=== PATIENT | female | born 1935 | race Caucasian/White ===

== ENCOUNTER → 2020-06-09 | Outpatient (CLI) | payer MEDICARE, BC ==
[~2020-06-09] MED LIST: CLOP75TA35 PO; DILT120C19 PO; EST1T PO; LEVO50TA PO; LOSA50TA3 PO; NITR0.4T SL
== END | disposition home or self-care (01) ==
LOC: VAS 13:46
PROVIDERS: ATTEND Radiology Diagnostic Radiology
DX: I74.5 Embolism and thrombosis of iliac artery (principal); I70.203 Unspecified atherosclerosis of native arteries of extremities, bilateral legs
CPT/HCPCS: 93922; 93925

== ENCOUNTER 2020-06-13 06:38 | Inpatient (IN) | payer MEDICARE, BC ==
[~2020-06-13] VITALS: Ht 144.8 cm; Wt 35.9 kg
[2020-06-13] VITALS (17 sets, daily range): BP systolic 133–184; BP diastolic 43–87
[2020-06-13] MEDS ORDERED: IBUP-24 PO (07:29)
[2020-06-13] MEDS ORDERED: CIME200T95 PO (07:29)
[2020-06-13] MEDS ORDERED: ACET-1025 PO (07:29)
[2020-06-13] MEDS ORDERED: ASCO-139 PO (07:29)
[2020-06-13] MEDS ORDERED: CHOL100046 PO (07:29)
[2020-06-13] MEDS ORDERED: OLME20TA23 PO (07:29)
[2020-06-13] MEDS ORDERED: normal saline 1000ml 1,000 ML IV PRN (07:40)
[2020-06-13 07:43] LABS: ALBUMIN 3.2 G/DL (3.4-5.0); ANION GAP 15 (8-16); BLOOD UREA NITROGEN 57 MG/DL (7-18); BUN/CREATININE RATIO 28.6 (6.6-38.0); CALCIUM 9.3 MG/DL (8.5-10.1); CHLORIDE 102 MMOL/L (99-107); CREATININE 1.99 MG/DL (0.40-0.90); GLUCOSE 104 MG/DL (70-104); SODIUM 135 MMOL/L (135-145); TOTAL CARBON DIOXIDE 18.3 MMOL/L (24-32); eGFR 24 ML/MIN
[2020-06-13 07:47] LABS: POTASSIUM 4.2 MMOL/L (3.5-5.1)
[2020-06-13] MEDS ORDERED: LIDOcaine 1%/PF 5ML 10 MG/ML VIAL ONE (07:50)
[2020-06-13] MEDS ORDERED: iohexol 300mg/ml 100ml inj. ONE (07:50)
[2020-06-13] MEDS ORDERED: heparin 1,000 UNITS/NS 500ml 500 ML ONE (07:50)
[2020-06-13 08:41] LABS: BASOPHILS # (AUTO) 0.1 X10'3 (0-0.2); BASOPHILS % (AUTO) 0.5 % (0-1); EOSINOPHILS % (AUTO) 0.1 % (0-6); HEMATOCRIT 30.9 % (35.0-45.0); HEMOGLOBIN 10.6 g/dl (12.0-16.0); LYMPHOCYTES # (AUTO) 1.4 X10'3 (1.1-4.8); LYMPHOCYTES % (AUTO) 6.9 % (21-51); MEAN CORPUSCULAR HEMOGLOBIN 33.9 PG (27.0-31.0); MEAN CORPUSCULAR HGB CONC 34.4 g/dL (33.0-36.5); MEAN CORPUSCULAR VOLUME 98.5 FL (78-98); MEAN PLATELET VOLUME 8.1 FL (7.4-10.4); MONOCYTES # (AUTO) 1.1 X10'3 (0-0.9); MONOCYTES % (AUTO) 5.7 % (2-12); NEUTROPHILS # (AUTO) 17.5 X10'3 (1.8-7.7); NEUTROPHILS % (AUTO) 86.8 % (42-75); PLATELET COUNT 375 X10'3 (140-440); RED BLOOD COUNT 3.14 X10'6 (4.20-5.60); RED CELL DISTRIBUTION WIDTH 12.9 % (11.5-14.5); WHITE BLOOD COUNT 20.1 X10'3 (4.5-11.0)
[2020-06-13] MEDS ORDERED: morphine 2 MG/ML inj. syringe IV ONE (08:55)
[2020-06-13] MEDS ORDERED: normal saline 1000ml 1,000 ML IV SCH ×2 (08:58→09:28)
[2020-06-13] MEDS ORDERED: HYDROmorphone/NS 1 mg/ml CADD 50 ML IV SCH (09:00)
[2020-06-13] MEDS ORDERED: normal saline 1000ml 1,000 ML IV ONE (09:00)
[2020-06-13 09:06] LABS: PARTIAL THROMBOPLASTIN TIME 28 SECONDS (22-32)
[2020-06-13] MEDS ORDERED: HYDROmorphone inj. 0.5 MG/0.5 ML DISP.SYRIN IM ONE (09:45)
[2020-06-13] MEDS ORDERED: HYDROmorphone inj. 0.5 MG/0.5 ML DISP.SYRIN IV ONE ×2 (10:05→10:35)
--- NOTE | 2020-06-13 11:00 | NUR ---
Patient in room [facility]. I have received report from Flora OSORIO and had the opportunity to ask questions and assume patient care. patient orientated in room, appears stable
--- NOTE | 2020-06-13 11:00 | NUR ---
Called report to JO Krishnamurthy on surgical-pt transferred to [address] via [facility]/C- Addendum: 06/13/20 at 1200 by Flora Holliday RN Amended: Links added.
[2020-06-13] MEDS ORDERED: iohexol 350MG/ML 100ml bottle IV ONE (11:44)
[2020-06-13] MEDS ORDERED: iohexol 350 MG/ML 50ML vial IV ONE (11:44)
[2020-06-13] MEDS ORDERED: heparin 25,000 UNIT/250ml bag 250 ML IV SCH (12:51)
[2020-06-13] MEDS ORDERED: potassium CL 10mEq/100ml bag 100 ML IV PRN ×2 (12:55)
[2020-06-13] MEDS ORDERED: acetaminophen 650mg rectal suppository RC PRN (12:55)
[2020-06-13] MEDS ORDERED: magnesium Cl slow-release 64mg tablet PO PRN (12:55)
[2020-06-13] MEDS ORDERED: heparin 10,000 units/1 ML INJ IV PRN (12:55)
[2020-06-13] MEDS ORDERED: magnesium hydroxide 30ml (MOM) UD suspension PO PRN (12:55)
[2020-06-13] MEDS ORDERED: nitroGLYCERIN 0.4mg SUBLingual tab SL PRN (12:55)
[2020-06-13] MEDS ORDERED: ondansetron/PF 4mg/2ml inj IV PRN (12:55)
[2020-06-13] MEDS ORDERED: magnesium 4gm in 100ml NS 100 ML IV PRN (12:55)
[2020-06-13] MEDS ORDERED: aminophylline 250mg/10ml inj. IV PRN (12:55)
[2020-06-13] MEDS ORDERED: mag hydrox/Alum hydrox/simeth 30ml oral suspension PO PRN (12:55)
[2020-06-13] MEDS ORDERED: acetaminophen 325mg tablet PO PRN (12:55)
[2020-06-13] MEDS ORDERED: magnesium 2GM in 50ml NS 50 ML IV PRN (12:55)
[2020-06-13] MEDS ORDERED: heparin 10,000 units/1 ML INJ IV ONE (12:55)
[2020-06-13] MEDS ORDERED: regadenoson 0.4mg/5ml syringe IV PRN (12:55)
[2020-06-13] MEDS ORDERED: bisacodyl 10mg suppository rectal RC PRN (12:55)
[2020-06-13] MEDS ORDERED: metoprolol tartrate 1mg/ml inj IV PRN (12:55)
[2020-06-13] MEDS ORDERED: potassium Cl 20 mEq SR tablet PO PRN ×2 (12:55)
[2020-06-13] MEDS ORDERED: acetylcysteine 200 MG/ml 4ml vial PO ONE (13:00)
[2020-06-13] MEDS: HYDROmorphone 1 mg/ml syringe IV PRN ×3 (13:51→23:47)
[2020-06-13] MEDS ORDERED: pneumococcal 23-VAL P-sac vacc 25 mcg/0.5ml vial IMVAC ONE (13:55)
[2020-06-13] MEDS: normal saline 1000ml 1,000 ML IV SCH ×2 (13:59→20:51)
[2020-06-13 14:02] LABS: BASOPHILS % (AUTO) 0.2 % (0-1); EOSINOPHILS % (AUTO) 0.1 % (0-6); HEMATOCRIT 32.3 % (35.0-45.0); HEMOGLOBIN 10.9 g/dl (12.0-16.0); LYMPHOCYTES # (AUTO) 2.1 X10'3 (1.1-4.8); LYMPHOCYTES % (AUTO) 9.5 % (21-51); MEAN CORPUSCULAR HEMOGLOBIN 33.6 PG (27.0-31.0); MEAN CORPUSCULAR HGB CONC 33.9 g/dL (33.0-36.5); MEAN CORPUSCULAR VOLUME 99.2 FL (78-98); MEAN PLATELET VOLUME 8.4 FL (7.4-10.4); MONOCYTES # (AUTO) 1.4 X10'3 (0-0.9); MONOCYTES % (AUTO) 6.2 % (2-12); NEUTROPHILS # (AUTO) 18.9 X10'3 (1.8-7.7); PLATELET COUNT 405 X10'3 (140-440); RED BLOOD COUNT 3.25 X10'6 (4.20-5.60); RED CELL DISTRIBUTION WIDTH 12.6 % (11.5-14.5); WHITE BLOOD COUNT 22.5 X10'3 (4.5-11.0)
[2020-06-13 14:10] LABS: HEMOGLOBIN A1C 4.9 % (4.5-6.2)
[2020-06-13 14:13] LABS: PARTIAL THROMBOPLASTIN TIME 27 SECONDS (22-32)
[2020-06-13 14:25] LABS: ALANINE AMINOTRANSFERASE 13 U/L (12-78); ALBUMIN 2.9 G/DL (3.4-5.0); ALBUMIN/GLOBULIN RATIO 0.7 (1.1-1.5); ALKALINE PHOSPHATASE 76 IU/L (46-116); ANION GAP 14 (8-16); ASPARTATE AMINO TRANSFERASE 14 U/L (10-37); BILIRUBIN,TOTAL 0.3 MG/DL (0.1-1.0); BLOOD UREA NITROGEN 49 MG/DL (7-18); BUN/CREATININE RATIO 34.5 (6.6-38.0); CALCIUM 8.7 MG/DL (8.5-10.1); CHLORIDE 104 MMOL/L (99-107); CREATININE 1.42 MG/DL (0.40-0.90); GLUCOSE 95 MG/DL (70-104); POTASSIUM 3.9 MMOL/L (3.5-5.1); SODIUM 137 MMOL/L (135-145); TOTAL CARBON DIOXIDE 19.1 MMOL/L (24-32); TOTAL PROTEIN 7.2 G/DL (6.4-8.2); eGFR 35 ML/MIN
--- NOTE | 2020-06-13 14:43 | NUR ---
Patient down to stress test.
[2020-06-13 17:03] LABS: CLARITY,URINE CLOUDY (Clear); COLOR,URINE YELLOW (Yellow); GLUCOSE, URINE NEGATIVE (Neg); KETONES,URINE NEGATIVE (Neg); LEUKOCYTE ESTERASE ,URINE SMALL (Neg); NITRITES, URINE NEGATIVE (Neg); OCCULT BLOOD,URINE LARGE (Neg); PROTEIN,URINE 30 mg/dl (Neg); UROBILINOGEN,URINE 0.2 E.U/dL (0.2-1.0)
[2020-06-13 17:05] LABS: UA COLLECTION TYPE CLN CATCH MIDSTREAM
[2020-06-13 17:10] LABS: SQUAMOUS EPITHELIAL CELL,UR MODERATE /LPF (FEW)
[2020-06-13 17:11] LABS: BACTERIA,URINE 4+ /HPF (Neg)
[2020-06-13 17:13] LABS: RBC,URINE 20-50 /HPF (0-2); WBC,URINE 50-100 /HPF (0-4)
[2020-06-13 17:16] LABS: TRIPLE PHOSPHATE CRYST 1+ /HPF (NEGATIVE); WBC CLUMPS,URINE MODERATE /HPF (NEGATIVE)
--- NOTE | 2020-06-13 18:41 | NUR ---
patient had CTA, echo , lexiscan and was seen by Dr Darling and Dr Golden. See notes Heparin infusion started on patient on return from [facility]. Dilaudid given for pain with good result picture taken of weepy area on left calf ,
--- NOTE | 2020-06-13 18:44 | NUR ---
Problems reprioritized. Patient report given, questions answered & plan of care reviewed with Quinton OSORIO.
[2020-06-13] MEDS ORDERED: K and/or MAG REPLACEMENT MC SCH (20:00)
[2020-06-13] MEDS: acetylcysteine 200 MG/ml 4ml vial PO SCH (21:04)
[2020-06-14] VITALS: BP 190/55
[2020-06-14] MEDS ORDERED: hydrALAZINE 20mg/ml inj. IV ONE
[2020-06-14] MEDS: LORazepam 1 MG tablet PO PRN ×2 (00:50→07:24)
[2020-06-14] MEDS: HYDROmorphone 1 mg/ml syringe IV PRN ×2 (04:12→11:08)
[2020-06-14] MEDS: normal saline 1000ml 1,000 ML IV SCH (04:51)
[2020-06-14 06:15] LABS: BASOPHILS # (AUTO) 0.1 X10'3 (0-0.2); BASOPHILS % (AUTO) 0.3 % (0-1); EOSINOPHILS % (AUTO) 0 % (0-6); HEMATOCRIT 30.5 % (35.0-45.0); HEMOGLOBIN 10.4 g/dl (12.0-16.0); LYMPHOCYTES # (AUTO) 1.2 X10'3 (1.1-4.8); LYMPHOCYTES % (AUTO) 6.9 % (21-51); MEAN CORPUSCULAR HEMOGLOBIN 33.9 PG (27.0-31.0); MEAN CORPUSCULAR HGB CONC 34.1 g/dL (33.0-36.5); MEAN CORPUSCULAR VOLUME 99.4 FL (78-98); MEAN PLATELET VOLUME 8.7 FL (7.4-10.4); MONOCYTES # (AUTO) 1.1 X10'3 (0-0.9); MONOCYTES % (AUTO) 6.3 % (2-12); NEUTROPHILS # (AUTO) 15.5 X10'3 (1.8-7.7); NEUTROPHILS % (AUTO) 86.5 % (42-75); PLATELET COUNT 349 X10'3 (140-440); RED BLOOD COUNT 3.07 X10'6 (4.20-5.60); RED CELL DISTRIBUTION WIDTH 12.9 % (11.5-14.5); WHITE BLOOD COUNT 17.9 X10'3 (4.5-11.0)
[2020-06-14 06:40] LABS: ALANINE AMINOTRANSFERASE 12 U/L (12-78); ALBUMIN 2.7 G/DL (3.4-5.0); ALBUMIN/GLOBULIN RATIO 0.8 (1.1-1.5); ALKALINE PHOSPHATASE 74 IU/L (46-116); ANION GAP 17 (8-16); ASPARTATE AMINO TRANSFERASE 18 U/L (10-37); BILIRUBIN,TOTAL 0.3 MG/DL (0.1-1.0); BLOOD UREA NITROGEN 30 MG/DL (7-18); BUN/CREATININE RATIO 40.5 (6.6-38.0); CALCIUM 8.8 MG/DL (8.5-10.1); CHLORIDE 110 MMOL/L (99-107); CHOL/HDL RATIO 2.5 (0.00-4.99); CHOLESTEROL 142 MG/DL (0-200); CREATININE 0.74 MG/DL (0.40-0.90); GLUCOSE 108 MG/DL (70-104); HDL CHOLESTEROL 57 MG/DL (35-60); LDL CHOLESTEROL 55 MG/DL (50-100); MAGNESIUM 1.8 MG/DL (1.5-2.4); PHOSPHORUS 2.3 MG/DL (2.3-4.5); POTASSIUM 3.7 MMOL/L (3.5-5.1); SODIUM 141 MMOL/L (135-145); TOTAL CARBON DIOXIDE 13.6 MMOL/L (24-32); TOTAL PROTEIN 6.3 G/DL (6.4-8.2); TRIGLYCERIDES 193 MG/DL (20-135); eGFR 75 ML/MIN
--- NOTE | 2020-06-14 06:50 | NUR ---
Patient in room [facility]. I have received report from Quinton OSORIO and had the opportunity to ask questions and assume patient care.
[2020-06-14 07:00] VITALS: BP 172/61
[2020-06-14] MEDS ORDERED: levoTHYROXINE 25mcg tablet PO SCH (07:00)
[2020-06-14] MEDS: acetylcysteine 200 MG/ml 4ml vial PO SCH (07:29)
[2020-06-14] MEDS ORDERED: losartan 50mg tablet PO SCH (08:00)
[2020-06-14] MEDS ORDERED: estradiol 1mg tablet PO SCH (08:00)
[2020-06-14] MEDS ORDERED: diltiazem CD 120mg capsule (once-daily) PO SCH (08:00)
[2020-06-14] MEDS ORDERED: famotidine 10mg tablet PO SCH (08:00)
[2020-06-14] MEDS ORDERED: sodium bicarbonate (8.4%) inj. 150 MEQ in dextrose 5%-water 1,000 ML IV SCH (08:40)
--- NOTE | 2020-06-14 08:40 | NUR ---
heparin stopped per Dr Darling. Patient prepared for surgery. Dilaudid given for pain with effect x1. Report called to Gennaro OSORIO in Recovery room.Patient taken for surgery 1230hrs.
[2020-06-14] MEDS ORDERED: piperacillin/tazo 3.375gm/50ml 50 ML IV SCH (09:25)
[2020-06-14] MEDS ORDERED: vancomycin/NS 1 GM ADD-VANTAGE 250 ML IV SCH (10:00)
[2020-06-14 10:50] VITALS: BP 188/45
--- NOTE | 2020-06-14 11:33 | NUR ---
Noted that pt with a low BMI using standing scaled weight of 35.9 kg. No wt hx in EMR however pt denied wt loss or decreased appetite per malnutrition risk screen with RN. Current wt is 93% IBW. Pt with no documented decrease in muscle strength or edema. No concerns for malnutrition at this time. Likely chronically underweight. Will continue to follow closely. Addendum: 06/14/20 at [address] Amended: Links added.
[2020-06-14] MEDS ORDERED: heparin 10,000 units/1 ML INJ ONE (11:50)
[2020-06-14] MEDS ORDERED: LIDOcaine 1% (10mg/ml) 2ml vial ONE (11:54)
[2020-06-14 12:14] VITALS: BP 188/45
[2020-06-14] MEDS ORDERED: NORepinephrine 8 MG in NS 250 ML BAG (32 mcg/ml) IV ONE (12:50)
[2020-06-14] MEDS ORDERED: sevoflurane 250ml liquid IH ONE (12:50)
[2020-06-14] MEDS ORDERED: DOPamine/D5W 400mg/250ml bag IV ONE (12:50)
[2020-06-14] MEDS ORDERED: albumin (Human) 5% 250ml BOTTLE IV ONE (12:50)
[2020-06-14] MEDS ORDERED: calcium chloride 100 MG/1 ML inj IV ONE ×2 (12:50→17:41)
[2020-06-14] MEDS ORDERED: atropine 0.4 mg/ml 20ml vial ONE (12:50)
[2020-06-14] MEDS ORDERED: sodium bicarbonate (8.4%) inj. 1 MEQ/ML ML ONE (12:50)
[2020-06-14] MEDS ORDERED: fentaNYL/PF 50MCG/1 ML 2ML syringe ONE (13:01)
[2020-06-14] MEDS ORDERED: rocuronium 10mg/ml inj IV ONE (13:53)
[2020-06-14] MEDS ORDERED: propofol inj 20 ML IV ONE (13:53)
[2020-06-14] MEDS ORDERED: LIDOcaine 2% (20mg/ml) 5ml vial ONE (13:53)
[2020-06-14] MEDS ORDERED: midazolam 2 mg/2 ml injection ONE (13:53)
[2020-06-14] MEDS ORDERED: nitroGLYCERIN-Tridil 50MG/D5W 250 ML IV ONE (13:56)
[2020-06-14] MEDS ORDERED: hydrALAZINE 20mg/ml inj. IV PRN (14:15)
[2020-06-14] MEDS ORDERED: ondansetron/PF 4mg/2ml inj IV PRN (14:15)
[2020-06-14] MEDS ORDERED: morphine 2 MG/ML inj. syringe IV PRN (14:15)
[2020-06-14] MEDS ORDERED: meperidine/PF 25mg/ml syringe IV PRN (14:15)
[2020-06-14] MEDS ORDERED: normal saline 1000ml 1,000 ML IV ONE (14:15)
[2020-06-14] MEDS ORDERED: HYDROmorphone inj. 0.5 MG/0.5 ML DISP.SYRIN IV PRN (14:15)
[2020-06-14] MEDS ORDERED: labetalol 20mg/4ml (5mg/ml) syringe IV PRN (14:15)
[2020-06-14] MEDS ORDERED: proCHLORperazine 10 MG/2 ml inj IV PRN (14:15)
[2020-06-14] MEDS ORDERED: 0.9 % SODIUM CHLORIDE 10 ML VIAL ONE (14:48)
[2020-06-14] MEDS ORDERED: ePHEDrine 50MG/ML INJ. ONE (14:48)
[2020-06-14] MEDS ORDERED: phenylephrine 10mg/ml inj. ONE (14:48)
[2020-06-14] MEDS ORDERED: albumin (Human) 5% 250ml 250 ML IV ONE (15:11)
[2020-06-14] MEDS ORDERED: FENTANYL-0.9 % NACL/PF 100 ML IV PRN (15:50)
[2020-06-14] MEDS ORDERED: midazolam 100mg in NS 100ml 100 ML IV PRN (15:50)
[2020-06-14] MEDS ORDERED: NORepinephrine 1 mg/ml inj IV ONE (15:54)
[2020-06-14] MEDS ORDERED: vasoPRESSIN 20 units/ml inj. ONE ×3 (16:10→17:16)
[2020-06-14] MEDS ORDERED: phenylephrine 50 MG in NS 250ml IVPB IV SCH (16:15)
[2020-06-14] MEDS ORDERED: albumin (Human) 5% 250ml 500 ML IV ONE (16:33)
[2020-06-14] MEDS ORDERED: insulin regular, human U-100 3ml vial - multi-dose ONE (16:35)
--- NOTE | 2020-06-14 17:07 | NUR ---
Problems reprioritized. Patient report given, questions answered & plan of care reviewed with Anastasiia OSORIO.
[2020-06-14 17:10] LABS: ABG BASE EXCESS -3.2 mmol/L (-2.0-2.0); ABG HCO3 27.4 mmol/L (22.0-26.0); ABG OXYGEN SATURATION 98.5 % (94-97); ABG PCO2 (T) 76.8 mmHg (32.0-45.0); ABG PO2 (T) 202.9 mmHg (75.0-100.0); FCOHb 0.3 % (0.0-3.9); FMetHb 0.2 % (0.0-1.5)
[2020-06-14] MEDS ORDERED: epiNEPHrine 1 mg/ml 30ml MDV ONE (17:25)
[2020-06-15] MEDS ORDERED: mineral oil/petrolatum ophthal oint EACHEYE SCH (20:00)
[2020-06-17] MEDS ORDERED: VANCOMYCIN LEVEL IV ONE (09:30)
== END 2020-06-14 17:47 | disposition expired | DRG 271 ==
LOC: SSTAY O 06:38 → SUR 3N 11:10 → UNDOADMIN 11:10 → PACU 12:51 → SUR 3N 12:51 → UNDOADMIN 12:51 → PACU 06-14 13:39 → SUR 3N 06-14 13:39 → UNDODISIN 06-14 17:47
PROVIDERS: ADMIT Radiology Diagnostic Radiology; ATTEND Radiology Diagnostic Radiology
PROC: 4A02XM4 Measurement of Cardiac Total Activity, External Approach (ICD-10-PCS; 2020-06-13)
PROC: 3E033HZ Introduction of Radioactive Substance into Peripheral Vein, Percutaneous Approach (ICD-10-PCS; 2020-06-13)
PROC: 30233L1 Transfusion of Nonautologous Fresh Plasma into Peripheral Vein, Percutaneous Approach (ICD-10-PCS; 2020-06-14)
PROC: 30233N1 Transfusion of Nonautologous Red Blood Cells into Peripheral Vein, Percutaneous Approach (ICD-10-PCS; 2020-06-14)
PROC: 30233R1 Transfusion of Nonautologous Platelets into Peripheral Vein, Percutaneous Approach (ICD-10-PCS; 2020-06-14)
PROC: 30233K1 Transfusion of Nonautologous Frozen Plasma into Peripheral Vein, Percutaneous Approach (ICD-10-PCS; 2020-06-14)
PROC: 04100ZK Bypass Abdominal Aorta to Bilateral Femoral Arteries, Open Approach (ICD-10-PCS; principal; 2020-06-14 12:50)
DX: I77.1 Stricture of artery (principal); N17.9 Acute kidney failure, unspecified; D68.9 Coagulation defect, unspecified; L97.909 Non-pressure chronic ulcer of unspecified part of unspecified lower leg with unspecified severity; I70.8 Atherosclerosis of other arteries; I10 Essential (primary) hypertension; D72.829 Elevated white blood cell count, unspecified; I25.10 Atherosclerotic heart disease of native coronary artery without angina pectoris; E03.9 Hypothyroidism, unspecified; F17.200 Nicotine dependence, unspecified, uncomplicated; I73.9 Peripheral vascular disease, unspecified; I70.0 Atherosclerosis of aorta; R57.1 Hypovolemic shock; Z79.890 Hormone replacement therapy; Z82.49 Family history of ischemic heart disease and other diseases of the circulatory system; Z88.2 Allergy status to sulfonamides; Z88.5 Allergy status to narcotic agent; Z90.710 Acquired absence of both cervix and uterus; Z20.828 Contact with and (suspected) exposure to other viral communicable diseases
CPT/HCPCS: 36415; 36430; 36600; 71045; 75635; 78452; 80048; 80053; 80061; 81001; 82803; 82948; 83036; 83605; 83735; 83880; 84100; 84145; 84443; 85018; 85025; 85610; 85730; 86885; 86900; 86901; 86920; 87040; 87077; 87081; 87088; 87186; 87635; 90732; 93005; 93017; 93306; 94002; 94760; A4618; A6258; A6449; A7000; A9500; C1751; C1758; G0378; J0171; J0280; J0360; J0461; J1170; J1265; J1644; J1815; J2001; J2250; J2270; J2370; J2704; J2785; J3010; J3370; J3490; J7030; J7040; J7050; J7120; L8670; P9016; P9035; P9045; P9059; Q9967